=== PATIENT | male | born 1945 | race Caucasian/White ===

== ENCOUNTER 2021-05-14 16:57 | Emergency (ER) | payer OTHER ==
[~2021-05-14] VITALS: Ht 172.7 cm; Wt 87.3 kg
[2021-05-14] MEDS ORDERED: ATOR40TA75 PO (17:46)
[2021-05-14] MEDS ORDERED: METO37.5 PO (17:46)
[2021-05-14] MEDS ORDERED: LISI20TA33 PO (17:46)
--- NOTE | 2021-05-14 21:22 | REPVR ---
PROCEDURE INFORMATION: Exam: US Duplex Left Lower Extremity Veins, Limited Exam date and time: 05/14/2021 9:14 PM Age: 75 years old Clinical indication: Pain; Foot; Left; Additional info: Swelling/pain TECHNIQUE: Imaging protocol: Real-time Duplex ultrasound of the Left Lower Extremity with 2-D rivera scale, color Doppler flow and spectral waveform analysis with image documentation. Limited exam focused on the left lower extremity veins. COMPARISON: CR Foot, complete LEFT 05/14/2021 8:38 PM FINDINGS: Left deep veins: Unremarkable. The common femoral, femoral, proximal profunda femoral and popliteal veins are patent without thrombus. Normal Doppler waveforms. Normal compressibility and/or augmentation response. Left superficial veins: Unremarkable. Saphenofemoral junction is patent without thrombus. Soft tissues: Unremarkable. IMPRESSION: No evidence of deep vein thrombosis. Electronically signed by: Sebastian Milton On 05/14/2021 21:22:01 PM
--- NOTE | 2021-05-14 21:25 | REPVR ---
PROCEDURE INFORMATION: Exam: XR Left Foot Exam date and time: 05/14/2021 8:53 PM Age: 75 years old Clinical indication: Pain; Foot; Left TECHNIQUE: Imaging protocol: XR Left foot. Views: 3 or more views. COMPARISON: No relevant prior studies available. FINDINGS: Bones/joints: There is no evidence of fracture. There is cortical thickening distal phalanx 1st digit and also the proximal phalanx. Soft tissues: Normal. IMPRESSION: No acute finding. Electronically signed by: Sebastian Milton On 05/14/2021 21:24:56 PM
[2021-05-14 22:01] VITALS: BP 142/63
== END 2021-05-14 22:02 | disposition home or self-care (01) ==
LOC: M ED 16:57
DX: M79.672 Pain in left foot (principal); I25.2 Old myocardial infarction; I10 Essential (primary) hypertension; E78.5 Hyperlipidemia, unspecified; Z88.8 Allergy status to other drugs, medicaments and biological substances; Z79.899 Other long term (current) drug therapy